=== PATIENT | male | born 1940 | race Caucasian/White ===

== ENCOUNTER → 2018-06-17 15:47 | Outpatient (CLI) | payer MEDICARE | END | disposition home or self-care (01) | LOC: D.RAD 06-16 11:30 | DX: R05 Cough (principal) ==

== ENCOUNTER → 2020-05-03 13:22 | Outpatient (CLI) | payer MEDICARE | END | disposition home or self-care (01) | LOC: D.RAD 13:22 | PROVIDERS: ATTEND Family Medicine | DX: R05 Cough (principal) ==